=== PATIENT | female | born 1995 | race African-American/Black ===

== ENCOUNTER 2024-08-10 12:57 | Inpatient (IN) ==
[2024-08-10 14:03] LABS: Appearance Urine Clear (Clear); Bilirubin Urine Negative (Negative); Blood Urine Negative (Negative); Color Urine Yellow; Glucose Urine UA Negative (Negative); Ketones Urine Negative (Negative); Leukocyte Esterase Urine Negative (Negative); Nitrite Urine Negative (Negative); Protein Urine Negative (Negative); Specific Gravity Urine 1.006 (1.000-1.030); Urobilinogen Urine Negative (Negative); pH Urine 6.5 (4.5-7.5)
--- NOTE | 2024-08-10 14:10 | Emergency Department Note ---
Impression & Plan Depression with suicidal ideation ED Provider Note NAME: TRACE LAU AGE: 29 SEX: F : 1995 ARRIVES VIA: Ambulance INFORMANT: Patient, ED PROVIDER(S): Cordell Martinez DO CHIEF COMPLAINT: Mental health evaluation HPI: The patient is a 29-year-old female who presented to the emergency department for a mental health evaluation. The patient has been having problems with depression and suicidal ideation over the course the last several weeks. She has had this before but usually does not go this long. She states that she went to see her therapist today. Crisis was called as well. She is having suicidal ideation with plans to cut herself or to with carbon oxide poisoning. 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 She was sent to the emergency department for further evaluation as well as possible inpatient management. ROS: See above HPI for pertinent positives & negatives. A total of 10 systems reviewed and were otherwise negative. PAST MEDICAL HISTORY: See Below PAST SURGICAL HISTORY: See Below FAMILY HISTORY: See Below SOCIAL HISTORY: See Below HOME MEDICATIONS: See Below ALLERGIES: See Below VITALS: See Below PHYSICAL EXAMINATION: GENERAL: Patient is awake alert in no acute distress patient is resting comfortably and showing no signs of anxiety EYES: The conjunctivae are clear. The pupils are round and reactive. EARS, NOSE, MOUTH AND THROAT: The nose is without any evidence of any deformity. NECK: The neck is nontender and supple. RESPIRATORY: Normal respiratory effort is noted there is no evidence of wheezing rhonchi or rales CARDIOVASCULAR: Regular rate and rhythm noted there no murmurs rubs or gallops normal S1 normal S2. GASTROINTESTINAL: The abdomen is soft. Abdomen is nontender. MUSCULOSKELETAL/EXTREMITIES: There is no evidence of gross deformity full range of motion is noted in the hips and shoulders. SKIN: There is no obvious evidence of any rash. There are no petechiae, pallor or cyanosis noted. NEUROLOGIC: Patient is awake alert and oriented x3 PSYCH: The patient makes good eye contact mostly evaluation. The patient is awake and alert. The patient continues to admit to suicidal ideation. The affect is flat. MEDICAL DECISION MAKING: The patient is a 29-year-old female who presented to the emergency department for an evaluation of mental health issues. The patient was seen by her primary therapist and then sent to the emergency department for further evaluation. The patient was medically cleared in the emergency department. The patient's case was discussed with the emergency department mental health housing case manager. The patient was found to be in need of inpatient treatment. She was referred to [facility] and ultimately she was accepted on [facility] for further inpatient management. Triage Nursing notes reviewed. Prior medical records reviewed Vital Signs: reviewed and remarkable for no significant abnormalities Differential diagnosis: Mood disorder, infection, hypoglycemia, electrolyte abnormalities, cardiac sources, intracerebral event, toxicologic, trauma, neurologic, as well as other pathologies. ER treatment provided: See below Diagnostics interpreted by me: ECG: EKG was obtained in the emergency department. My interpretation is normal sinus rhythm at 67 bpm. There is no ectopy. There is no acute ST segment abnormalities noted. Inferior T wave inversions were noted. QTc was 388 ms. QRS duration was 82 ms. No previous EKG was available. Laboratory studies: As stated above and show below. Imaging studies: See below. Consultation(s): I discussed this case with the emergency department mental health housing case manager. Past Med/Surg History Problem List (Updated 08/10/24 @ 21:12 by Cordell Martinez DO) Depression with suicidal ideation (Acute) Social History Smoking Status: Never smoker Preferred Language: Zambian Feels Safe at Home: Yes Gender Identity: Female Home Meds Home Medications Medication Instructions Recorded Confirmed No Known Home Medications 08/10/24 08/10/24 Results & Data (ED) Vital Signs Vital Signs - 24 hr 08/10/24 13:00 08/10/24 15:01 08/10/24 18:28 Temperature 37.4 C Temperature Source Oral Pulse Rate 86 Pulse Rate [Left Finger] 81 95 H Pulse Rhythm [Left Finger] Regular Pulse Strength [Left Finger] Normal Respiratory Rate 18 18 18 Respiratory Effort / Characteristics Non-Labored Respiratory Depth Normal Respiratory Pattern Regular Blood Pressure 116/79 Blood Pressure [Right Arm] 116/76 121/77 Blood Pressure Mean 91 Blood Pressure Mean [Right Arm] 89 91 Blood Pressure Position [Right Arm] Sitting Pulse Oximetry 95 99 94 Oxygen Delivery Method Room Air Room Air Room Air Sepsis Recent Fever Within 48 Hours No Sepsis New/Unexplained Change in Mental Status No Sepsis Action Taken by Nursing No Action Required 08/10/24 20:00 Temperature Temperature Source Pulse Rate Pulse Rate [Left Finger] 90 Pulse Rhythm [Left Finger] Regular Pulse Strength [Left Finger] Normal Respiratory Rate 17 Respiratory Effort / Characteristics Non-Labored Respiratory Depth Normal Respiratory Pattern Regular Blood Pressure Blood Pressure [Right Arm] 116/70 Blood Pressure Mean Blood Pressure Mean [Right Arm] 85 Blood Pressure Position [Right Arm] Sitting Pulse Oximetry 98 Oxygen Delivery Method Room Air Sepsis Recent Fever Within 48 Hours Sepsis New/Unexplained Change in Mental Status Sepsis Action Taken by [facility] Medications Current Medication List: was personally reviewed by me Laboratory Data Attestation: I reviewed the patient's lab results. 08/10/24 13:20 08/10/24 13:20 Lab Results 08/10/24 08/10/24 08/10/24 Range/Units 13:00 13:20 13:27 WBC 6.61 (4.8-10.8) K/ul RBC 4.83 (4.20-5.40) M/uL Hgb 14.2 (12.0-16.0) g/dl Hct 41.0 (37.0-47.0) % MCV 84.9 (80.0-100.0) fL MCH 29.4 (25.0-34.0) pg MCHC 34.6 (32.0-36.0) g/dL RDW Std Deviation 39.1 (36.4-46.3) fL RDW Coeff of Jose 12.8 (11.5-14.5) % Plt Count 213 (130-400) K/uL MPV 10.7 (9.4-12.4) fL Immature Gran % (Auto) 0.3 % Neut % (Auto) 61.8 % Lymph % (Auto) 31.0 % [place] % (Auto) 5.7 % Eos % (Auto) 0.9 % Baso % (Auto) 0.3 % Neut # (Auto) 4.08 (1.40-6.50) K/uL Lymph # (Auto) 2.05 (1.20-3.40) K/uL [place] # (Auto) 0.38 (0.11-0.59) K/uL Eos # (Auto) 0.06 (0.00-0.50) K/uL Baso # (Auto) 0.02 (0.00-0.20) K/uL Immature Gran # (Auto) 0.02 (0.01-0.20) K/uL Sodium 135 L (136-145) mmol/L Potassium 3.6 (3.5-5.1) mmol/L Chloride 106 (98-107) mmol/L Carbon Dioxide 24 (21-32) mmol/L Anion Gap 5 (3-11) BUN 5 L (6-23) mg/dl Creatinine 0.61 (0.6-1.2) mg/dl Est Cr Clr Drug Dosing Not Reportable eGFR 125.59 BUN/Creatinine Ratio 8.2 L (10-20) Glucose 102 H (70-99(Fasting)) mg/dl Calcium 9.9 (8.6-10.3) mg/dl Total Bilirubin 0.6 (0.2-1.0) mg/dl AST 13 (13-39) U/L ALT 14 (7-52) U/L Alkaline Phosphatase 67 (34-104) U/L Total Protein 7.6 (6.0-8.3) gm/dl Albumin 4.5 (3.4-5.0) gm/dl Globulin 3.1 (2.5-4.0) gm/dl Albumin/Globulin Ratio 1.5 (0.9-2) TSH 1.804 (0.300-4.500) uIu/ml HCG, Qual Negative (Negative) Urine Color Yellow Urine Appearance Clear (Clear) Urine pH 6.5 (4.5-7.5) Ur Specific [place] 1.006 (1.000-1.030) Urine Protein Negative (Negative) Urine Glucose (UA) Negative (Negative) Urine Ketones Negative (Negative) Urine Blood Negative (Negative) Urine Nitrite Negative (Negative) Urine Bilirubin Negative (Negative) Urine Urobilinogen Negative (Negative) Ur Leukocyte Esterase Negative (Negative) Salicylates < 3.0 L (3.0-30) mg/dl Urine Opiates Screen Neg (Neg) Ur Methadone, Qual Neg (Neg) Urine Fentanyl Screen Neg (Neg) Acetaminophen < 3 L (10-30) ug/ml Urine Barbiturates Neg (Neg) Ur Phencyclidine (PCP) Neg (Neg) U Amphetamin/Meth Scrn Neg (Neg) MDMA (Ecstasy) Screen Neg (Neg) U Benzodiazepines Scrn Neg (Neg) Ur Cocaine Metabolite Neg (Neg) U Marijuana (THC) Screen Neg (Neg) Ethyl Alcohol mg/dL < 10.0 (<10.0) mg/dl SARS-CoV-2, RNA, NAAT NEGATIVE (NEGATIVE) Discharge Plan Visit Data Chief Complaint: Mental Health Evaluation Stated Complaint: Mental Health ED Provider: Cordell Martinez Discharge Problem: Depression with suicidal ideation Patient Disposition: Transfer Behavioral Health Fac Forms Stand Alone Forms: [facility], Suicide Prevention Resources Prescriptions Prescriptions: No Action No Known Home Medications Referrals Referrals: PCP,NO [Physician] -
[2024-08-10 14:18] LABS: Basophils # (auto) 0.02 K/uL (0.00-0.20); Basophils % (auto) 0.3 %; Eosinophils # (auto) 0.06 K/uL (0.00-0.50); Eosinophils % (auto) 0.9 %; Hemoglobin 14.2 g/dl (12.0-16.0); Immature Granulocytes # (auto) 0.02 K/uL (0.01-0.20); Immature Granulocytes % (auto) 0.3 %; Lymphocytes # (auto) 2.05 K/uL (1.20-3.40); Mean Corpuscular Hemoglobin 29.4 pg (25.0-34.0); Mean Corpuscular Hgb Conc 34.6 g/dL (32.0-36.0); Mean Corpuscular Volume 84.9 fL (80.0-100.0); Mean Platelet Volume 10.7 fL (9.4-12.4); Monocytes # (auto) 0.38 K/uL (0.11-0.59); Monocytes % (auto) 5.7 %; Neutrophils # (auto) 4.08 K/uL (1.40-6.50); Neutrophils % (auto) 61.8 %; Platelet Count 213 K/uL (130-400); RDW Coefficient of Variation 12.8 % (11.5-14.5); RDW Standard Deviation 39.1 fL (36.4-46.3); Red Blood Count 4.83 M/uL (4.20-5.40); White Blood Count 6.61 K/ul (4.8-10.8)
[2024-08-10 14:19] LABS: Pregnancy Test, Serum Negative (Negative)
[2024-08-10 14:26] LABS: Alanine Aminotransferase 14 U/L (7-52); Albumin Globulin Ratio 1.5 (0.9-2); Albumin Level 4.5 gm/dl (3.4-5.0); Alkaline Phosphatase 67 U/L (34-104); Anion Gap 5 (3-11); Aspartate Aminotransferase 13 U/L (13-39); BUN Creatinine Ratio 8.2 (10-20); Bilirubin,Total 0.6 mg/dl (0.2-1.0); Blood Urea Nitrogen 5 mg/dl (6-23); Calcium 9.9 mg/dl (8.6-10.3); Carbon Dioxide 24 mmol/L (21-32); Chloride 106 mmol/L (98-107); Globulin 3.1 gm/dl (2.5-4.0); Glucose 102 mg/dl (70-99(Fasting)); Potassium 3.6 mmol/L (3.5-5.1); Sodium 135 mmol/L (136-145); Total Protein 7.6 gm/dl (6.0-8.3)
[2024-08-10 14:35] LABS: Acetaminophen < 3 ug/ml (10-30); Salicylate < 3.0 mg/dl (3.0-30)
[2024-08-10 14:38] LABS: Thyroid Stimulating Hormone 1.804 uIu/ml (0.300-4.500)
[2024-08-10 14:45] LABS: Amphetamines+Metham, Urine Neg (Neg); Barbiturates, Urine Neg (Neg); Benzodiazepine, Urine Neg (Neg); Cocaine, Urine Neg (Neg); Fentanyl, Urine Neg (Neg); MDMA (Ecstacy), Urine Neg (Neg); Marijuana, Urine Neg (Neg); Methadone, Urine Neg (Neg); Opiate, Urine Neg (Neg); Phencyclidine, Urine Neg (Neg)
[2024-08-11] MEDS ORDERED: BISMUTH SUBSALICYLATE 262 MG CHEW PO PRN (00:05)
[2024-08-11] MEDS ORDERED: hydrOXYzine HCl 25 MG TAB PO PRN (00:05)
[2024-08-11] MEDS ORDERED: MAGNESIUM HYDROXIDE SUSP 30 ML UDC PO PRN (00:05)
[2024-08-11] MEDS ORDERED: SODIUM CHLORIDE 0.65% NA SOLN 45 ML (OCEAN) PRN (00:05)
[2024-08-11] MEDS ORDERED: ALUMINUM/MAGNESIUM SUSP 30 ML UDC PO PRN (00:05)
--- OUTSIDE RECORDS SUMMARY | 2024-08-11 06:36 | External Medical Summary | Continuity of Care Document ---
Author Name Unknown Organization [facility] [id number] Address [address] [place] [id number] Care Team Providers Care Clinical Dermatologist Name Role Phone Jamilah Arguello Primary Care Physici [phone] Encounter [facility] [id number] Date(s): 07/07/24 - 07/07/24 [facility] 0 [facility] [address] [place] [id number] [place] [phone] Encounter Diagnosis Synovitis of left ankle(Discharge Diagnosis) - 07/07/24 Discharge Disposition: Home or Self Care Attending Physician: MD Johansen Paul K Referring Physician: Tushar Nicolas PA-C, Heather A Allergies, Adverse Reactions, Alerts No Known Allergies Assessment and Plan Extracted from: Title:Frankie Johansen Author:Desmond Callahan Date:07/07/24 Impression: 29 year old fema le with synovitis of the left ankle. Plan: - Recommend use of Voltaren gel as needed for pain, may use up to 4x daily for 2-3 weeks straight - May continue to exercise as tolerated - May attend PT if she would like to - Follow up as needed for clinical evaluation The patient understood all my instructions and explanation; all their questions were satisfactorily addressed. Medications Fish Oil 500 mg oral capsule Start: 07/07/24 8:12:00 AM EST Start Date: 07/07/24 Status: Ordered Vitamin C Start: 07/07/24 8:12:00 AM EST Start Date: 07/07/24 Status: Ordered Vitamin D3 Start: 07/07/24 8:12:00 AM EST, b Start Date: 07/07/24 Status: Ordered Mental Status 07/07/24 Barriers to Learning one year None evide nt Mandatory Health Literacy Documentation Yes Health Literacy Communication Barriers N ever Primary Language Russian Problem List No Chronic Problems Diagnosis Diagnosis Type Effective Dates Health Status Cl inical Service Informant Synovitis of left ankle Discharge Diagnosis 07/07/24 Vital Signs Most recent to oldest [Reference Range]: 1 Height 165.1 cm (07/07/24 8:12 AM) Patient Weight 68.0 kg (07/07/24 8:12 AM) Body Mass Index 24.95 kg/m2 (07/07/24 8:12 AM) Social History Social History Type Response Smoking Status Never smoked cigaret roula Sex Female Sex Representation Female (finding) Ortho Outpt Note * Veronica Callahan: PERFORM, MODIFY, MODIFY, MODIFY, MODIFY Event Display: Ortho Outpt Note Authored Date: [id number] Primary Care Provider Tushar Nicolas PA-C, Heather A Referring Provider Tushar Nicolas PA-C, Heather A Chief Complaint L ankle pain History of Present Illness Trace [id number] yearDany presents today forchronic left ankle pain. She has been intermittent ankle pain over the last year. Symptoms started after doing calf raise exercise after a period of not exercising for a while. The pain is mostly on the anteromedial ankle and does not radiate. Plantarflexion of the ankle at push off aggravates her pain. Walking down stairs is more uncomfortable than walking up. She takes Advil as needed, roughly 1-3x weekly. She does not recall any prior ankle injuries. The patient likes to exercise daily, such as cycling and elliptical, along with strengthening of her upper body, legs, and core. She also has had ongoing left knee pain, which she believes may be affecting her ankle symptoms. Review of Systems A 14 point review of systems is available in the EMR. Physical Exam Focusing on the patient'sLEFTlower extremity (ankle): Ankle ROM: Dorsiflexion 15/ Plantarflexion 40/ Inversion 30/ Eversion 25 5/5 Strength dorsiflexion, plantarflexion, inversion, eversion Sensation intact to light touch throughout Palpable DP pulse and PT pulses - Tenderness over medial malleolus - Tenderness over deltoid ligament - Tenderness over medial gutter - Tenderness over anterior ankle joint line Mild tenderness over lateral gutter, bilaterally - Tenderness over CFL - Tenderness over navicular Anterior drawer test2 mmbilaterally -Talar tilt test No pain with forced dorsiflexion Diagnostic Results 3views of theleft ankleobtained 03/20/24 and independently interpreted by me taken at [facility] show no evidence of fractures or arthritis. Assessment/Plan Impression: 29 year old female with synovitis of the left ankle. Plan: - Recommend use of Voltaren gel as needed for pain, may use up to 4x daily for 2-3 weeks straight - May continue to exercise as tolerated - May attend PT if she would like to - Follow up as needed for clinical evaluation The patient understood all my instructions and explanation; all their questions were satisfactorilyaddressed. Attestation I, Veronica Callahan, have scribed for, and in the presence of, Frankie Johansen, on this date,07/07/2024 08:36:29. Recommendations Health Maintenance Pending(in the next year) OverDue Adult Influenza Vaccine due12/09/23and every 1year Due Adult Folic Acid Supplementation due07/07/24and every 3year Satisfied(in the past 1 year) There are no satisfied recommendations within the defined date range Electronic Signature on File Electronically Reviewed/Signed by: Veronica Callahan Author Signature Dt/Tm:07/07/2024 08:41 AM Electronically Reviewed/Signed by: Frankie Johansen MD Cosigner Signature Dt/Tm: 07/07/2024 12:56PM Division of Sports Medicine [facility] Patient Care team information Care Team Personnel Name: Tushar Nicolas PA-C, Jamilah Richardson Position: Referring DIRECT Member Role: Primary Care Provider Address: [address] [place] [id number] [place]
--- NOTE | 2024-08-11 09:04 | History & Physical ---
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 Diagnostically consistent with major depressive disorder and possible premenstrual dysphoric disorder as well as generalized anxiety disorder with panic attacks. Discussed medication treatment options in detail. Discussed risks, benefits and alternatives. Patient would like to start and consented to fluoxetine for MDD/PMDD/MICHA. Reviewed side effects including but not limited to: GI, AMTUTE, sexual side effects, and counseled on black box warning of potential for emergence of or increased SI and need to let staff know should this occur or should they feel unsafe. Also discussed importance of seeking emergency care following discharge if this side effect occurs in the future. Overall I spent a total of 75 minutes for this admission including review of chart records, review of labwork, direct evaluation of the patient, counseling the patient, ordering medication, risk assessment, discussion with the psychiatric liason RN and documentation in the electronic health record. (1) Depression with suicidal ideation: (2) MDD (major depressive disorder), recurrent episode, severe: (3) PMDD (premenstrual dysphoric disorder): (4) Generalized anxiety disorder with panic attacks: (5) Insomnia: Plan 08/11/2024: The patient was admitted to the [facility] ([facility] mental health unit) on q15 min checks (behavioral with suicide precautions) for safety. The patient will participate in group, recreational, and milieu therapies and will be offered additional individual and family sessions as clinically appropriate. -start fluoxetine 10mg daily -explore opportunities for increased outpatient support through increased frequency of therapy vs IOP Inventory Assets Strengths: supportive relationships, willing to get treatment Needs: safety and stabilization, medication adjustment, additional coping skills, increased outpatient services Suicide Risk Level Suicide Risk Level: High-Moderate (q15 min suicide checks) (depression with SI with plans but feels safe in the hospital and feels able to ask for support if needed) Risk Factors Assessment Male: No : No Do You Have Access To A Gun?: No Health Problems: No Mental Health Diagnoses: Yes Substance Use Disorders: No Previous Attempt: Yes (rehearsal behaviors leading to this admission) Family History of Suicide: No Previous Psychiatric Hospitalization: No Hopelessness: Yes Protective Factors Assessment Employed: Yes Stable Relationships: Yes Supportive Family: Yes Good Rapport with Provider: Yes Psychiatric History Identifying Data TRACE LAU is a 29-year-old woman and 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 Chief Complaint "I kind of just dipped and everything started to spiral". History of Present Illness She presents for psychiatric admission for worsening depression and SI with plans of using a knife, overdosing on pain medications, using carbon monoxide poisoning or crashing her car and rehearsal behavior of almost cutting her wrist in the context of multiple psychosocial stressors including research challenges, upcoming comprehensive exam, and relationship strain of comparison of peers, and concerns about her status as an International student given the current political enviornment. Her current depressive episode began approximately a month ago but worsened two weeks ago when she lost her keys, which gave her access to her lab, home, and gym. This incident exacerbated her stress, leading to a period of staying in bed and not answering anyone for the last two weeks. She has not been going to the lab during this time.She recalls her mood spiraling after losing her keys. She was able to talk herself down from this stress but "I thought I managed it at that time" but this disrupted her routine as then she couldn't get into her gym and then started to increasingly isolate. For the last two weeks she's been lying in bed, not attending to her research and not interacting with peers. She had significant anxiety thinking about all the tasks waiting for her at the lab and "I would ruminate on that" which lead to further avoidance. She has noticed a connection between her mood and hormonal fluctuations related to her menstrual cycle, experiencing irritability and mood swings before her period, followed by depression. She had been trying behavioral activation strategies and coping strategies but then symptoms spiraled. She endorses depressive symptoms including tearfulness, anhedonia, decreased motivation, self-guilt, helplessness, hopelessness, decreased energy/fatigue, decreased appetite (eating meal per day), and decreased sleep with disruptive sleep (had been tracking using a CBT-I miguel) but started falling asleep later getting <6 hours. SI has been occurring more frequently with each episode of depression and has intensified to the point of thinking about plans about two weeks ago and has continued to worsen. She also endorses symptoms of anxiety including generalized worries, easily overwhelmed. Possible panic attack a few days ago for the first time with racing heart, trembling and cried. She is not currently prescribed any psychiatric medications. Psychiatric ROS notable for no current nor history of symptoms of ericka, psychosis, nor OCD. History of trauma with nightmares and flashbacks but using affirmations and distraction and tends to be able to then cope with these symptoms effectively. History of restrictive eating for two months as a teenager. History of hair pulling, worsens with anxiety. Past Psychiatric History Current Psychiatric Diagnosis: unspecified depressive disorder Outpatient Services: therapist Zaynab Weinstein with [facility], weekly Previous Psych Admissions: none Do You Have Access To A Gun?: No History of Previous Suicide Attempt: Yes (speaks to cutting herself leading to this admission) Past Medication Trials: none Past Head Trauma/Neuro History History of Concussion/Seizure: No Allergies Allergy/AdvReac Type Severity Reaction Status Date / Time No Known Allergies Allergy Unverified 08/11/24 00:07 Home Medications Medication Instructions Recorded Confirmed Type No Known Home Medications 08/10/24 08/10/24 History Family History Family History of: Other-List under Comment (brother with ADHD and depression) Alcohol History Hx of Alcohol Use Over the Past 12 Months: No AUDIT Total Score: 0 Smoking Use Have You Smoked or Used Tobacco Products in the Last 30 Days: No Smoking Status: Never smoker Substance History Hx of Prescription Med Misuse Over the Past 12 Months: No Hx of Over the Counter Med Misuse Over the Past 12 Months: No Hx of Inhalent Misuse Over the Past 12 Months: No Hx of Organic Substance Use Over the Past 12 Months: No Hx of Illegal Substances/Street Drug Use Over Past 12 Months: No Problems as a Result of Past Substance Use: None Identified Personal History Living Arrangements: Apartment Childhood: From [place] Highest Grade Completed: Graduate School 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 ) Marital Status: Single Number Of Children: none Beliefs That Will Affect Care: None Current Legal Problems: No Hx Legal Problems: No Hx Traumatic Life Events: Yes Patient History Family History (Updated 08/11/24 @ 11:58 by Dana Gao MD) Mother Hypertension Brother Hypertension Social History Smoking Status: Never smoker 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 Supervisor Required: No Beliefs That Will Affect Care: None Feels Safe at Home: Yes Gender Identity: Female Assistive Devices: None Review of Systems Review of Systems: All systems reviewed & are unremarkable except as noted in HPI & below Physical Exam Psychiatric: Orientation: alert and oriented x 3 Apperance: appropriately dressed and appropriately groomed Eye Contact: good eye contact Motor Behavior: no abnormal motor movements Speech: normal rate/rhythm/volume of speech Affect: + depressed affect Mood: + depressed mood and + anxious mood Thought Process: goal directed thought process Thought Content: reality based without delusions Suicidal Thoughts: denies suicidal plan (none for hospital, multiple for outside the hospital) and denies suicidal intent; + reports suicidal thoughts (intermittent ) Homicidal Thoughts: denies homicidal thoughts Hallucinations: no auditory hallucinations and no visual hallucinations Cognition: recent memory grossly intact, remote memory grossly intact, attention grossly intact and language grossly intact Estimated Intelligence: consistent with education level Insight: + fair insight Judgment: + fair judgement Vital Signs (Past 24 Hours): Last Vital Signs Temp 36.8 C 08/11/24 05:47 Pulse 88 08/11/24 05:48 Resp 18 08/11/24 05:47 BP 118/75 08/11/24 05:48 Pulse Ox 100 08/11/24 05:47 O2 Del Method Room Air 08/11/24 05:47 Exam Statement: A physical exam was performed in the ED by Dr. Martinez for the purposes of medical clearance. I accept that physical as correct and adequate for the purposes of the inpatient physical exam. Results & Data ([facility]) Laboratory Results Laboratory Results - last 24 hr 08/10/24 08/10/24 08/10/24 13:00 13:20 13:27 WBC 6.61 RBC 4.83 Hgb 14.2 Hct 41.0 MCV 84.9 MCH 29.4 MCHC 34.6 RDW Std Deviation 39.1 RDW Coeff of Jose 12.8 Plt Count 213 MPV 10.7 Immature Gran % (Auto) 0.3 Neut % (Auto) 61.8 Lymph % (Auto) 31.0 Mcmullen % (Auto) 5.7 Eos % (Auto) 0.9 Baso % (Auto) 0.3 Neut # (Auto) 4.08 Lymph # (Auto) 2.05 Mcmullen # (Auto) 0.38 Eos # (Auto) 0.06 Baso # (Auto) 0.02 Immature Gran # (Auto) 0.02 Sodium 135 L Potassium 3.6 Chloride 106 Carbon Dioxide 24 Anion Gap 5 BUN 5 L Creatinine 0.61 Est Cr Clr Drug Dosing Not Reportable eGFR 125.59 BUN/Creatinine Ratio 8.2 L Glucose 102 H Calcium 9.9 Total Bilirubin 0.6 AST 13 ALT 14 Alkaline Phosphatase 67 Total Protein 7.6 Albumin 4.5 Globulin 3.1 Albumin/Globulin Ratio 1.5 TSH 1.804 HCG, Qual Negative Urine Color Yellow Urine Appearance Clear Urine pH 6.5 Ur Specific [place] 1.006 Urine Protein Negative Urine Glucose (UA) Negative Urine Ketones Negative Urine Blood Negative Urine Nitrite Negative Urine Bilirubin Negative Urine Urobilinogen Negative Ur Leukocyte Esterase Negative Salicylates < 3.0 L Urine Opiates Screen Neg Ur Methadone, Qual Neg Urine Fentanyl Screen Neg Acetaminophen < 3 L Urine Barbiturates Neg Ur Phencyclidine (PCP) Neg U Amphetamin/Meth Scrn Neg MDMA (Ecstasy) Screen Neg U Benzodiazepines Scrn Neg Ur Cocaine Metabolite Neg U Marijuana (THC) Screen Neg Ethyl Alcohol mg/dL < 10.0 SARS-CoV-2, RNA, NAAT NEGATIVE Current Inpatient Medications Current Inpatient Medications: Current Inpatient Medications Acetaminophen (Acetaminophen 325 Mg Tab) 650 mg PO Q4H PRN PRN Reason: Headache or Minor Fever Stop: 09/10/24 00:04 Al Hydrox/Mg Hydrox/Simethicone (Aluminum/Magnesium Susp 30 Ml Udc) 30 ml PO Q4H PRN PRN Reason: GI Upset Stop: 09/10/24 00:04 Bismuth Subsalicylate (Bismuth Subsalicylate 262 Mg Chew) 2 tab PO Q30M PRN PRN Reason: Loose Stool/Diarrhea Stop: 09/10/24 00:04 Hydroxyzine HCl (Hydroxyzine Hcl 25 Mg Tab) 50 mg PO HSZ PRN PRN Reason: Insomnia Stop: 09/10/24 00:04 Hydroxyzine HCl (Hydroxyzine Hcl 25 Mg Tab) 25 mg PO Q4H PRN PRN Reason: Anxiety Stop: 09/10/24 00:04 Magnesium Hydroxide (Magnesium Hydroxide Susp 30 Ml Udc) 30 ml PO DAILY PRN PRN Reason: Constipation Stop: 09/10/24 00:04 Sodium Chloride (Sodium Chloride 0.65% Na Soln 45 Ml ([place])) 1 - 2 sprays NA PRN PRN PRN Reason: Nasal Dryness/Congestion Stop: 09/10/24 00:04
[2024-08-11] MEDS: FLUoxetine HCL 10 MG CAP PO SCH (12:57)
[2024-08-11] MEDS: ACETAMINOPHEN 325 MG TAB PO PRN (20:17)
[2024-08-12] MEDS: hydrOXYzine HCl 25 MG TAB PO PRN (00:08)
--- NOTE | 2024-08-12 09:19 | Psychiatric Progress Note ---
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 Diagnostically consistent with major depressive disorder and possible premenstrual dysphoric disorder as well as generalized anxiety disorder with panic attacks. A: Ongoing depression and disrupted sleep but some lessening of SI. Headache today may be due to SSRI so will continue at 10mg for now. She prefers to continue to utilize Vistaril prn for insomnia vs scheduled additional medication for sleep. Overall, I spent a total of 35 minutes on this case including meeting with the patient, reviewing the chart, nursing report, multidisciplinary team meeting, orders, and documentation. (1) Depression with suicidal ideation: (2) MDD (major depressive disorder), recurrent episode, severe: (3) PMDD (premenstrual dysphoric disorder): (4) Generalized anxiety disorder with panic attacks: (5) Insomnia: Plan 08/12/2024: Continue current medications and tx plan 08/11/2024: The patient was admitted to the [facility] ([facility] inpatient mental health unit) on q15 min checks (behavioral with suicide precautions) for safety. The patient will participate in group, recreational, and milieu therapies and will be offered additional individual and family sessions as clinically appropriate. 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, still with SI but no intent, mood improving, feels safe in the hospital and feels able to ask for support if needed) Risk Factors Assessment Male: No : No Do You Have Access To A Gun?: No Health Problems: No Mental Health Diagnoses: Yes Substance Use Disorders: No Previous Attempt: Yes (rehearsal behaviors leading to this admission) Family History of Suicide: No Previous Psychiatric Hospitalization: No Hopelessness: Yes Protective Factors Assessment Employed: Yes Stable Relationships: Yes Supportive Family: Yes Good Rapport with Provider: Yes Interval History Identifying Information 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 Chief Complaint "much better". Review of Systems Sleep Information Total Hours of Sleep: 5.5 Meal Information Percent Meal Consumed - Breakfast: 100 Percent Meal Consumed - Lunch: 75 Percent Meal Consumed - Dinner: 90 Subjective Subjective Patient was seen & assessed and interval progress reviewed with treatment team. Attending groups. Ate well yesterday. Rated mood as feeling "relief" last evening. Had difficulty sleeping awake at 12:30am and used prn Vistaril and 4:45am. Her mother and sister visited last evening. Today reports improving mood which she credits to getting back into more physical activity and morning routine and being around others. Slight headache today, no other medication side effects. SI "still there but less intense". had a good visit with family, she was worried about their reaction but they were very supportive and nonjudgmental. Vistaril helped some with sleep. This morning feels "a little groggy but rested". Physical Exam Psychiatric Orientation: alert and oriented x 3 Apperance: appropriately dressed and appropriately groomed Eye Contact: good eye contact Motor Behavior: no abnormal motor movements Speech: normal rate/rhythm/volume of speech Affect: + depressed affect Mood: + depressed mood and + anxious mood Thought Process: goal directed thought process Thought Content: reality based without delusions Suicidal Thoughts: denies suicidal plan (none for hospital, multiple for outside the hospital) and denies suicidal intent; + reports suicidal thoughts Homicidal Thoughts: denies homicidal thoughts Hallucinations: no auditory hallucinations and no visual hallucinations Cognition: recent memory grossly intact, remote memory grossly intact, attention grossly intact and language grossly intact Estimated Intelligence: consistent with education level Insight: + fair insight Judgment: + fair judgement Vital Signs (Past 24 Hours) Last Vital Signs Temp 36.6 C 08/12/24 06:00 Pulse 68 08/12/24 06:00 Resp 16 08/12/24 06:00 BP 115/83 08/12/24 06:40 Pulse Ox 100 08/12/24 06:00 O2 Del Method Room Air 08/12/24 06:00 Results & Data ([facility]) Current Inpatient Medications Current Inpatient Medications: Current Inpatient Medications Acetaminophen (Acetaminophen 325 Mg Tab) 650 mg PO Q4H PRN PRN Reason: Headache or Minor Fever Stop: 09/10/24 00:04 Last Admin: 08/11/24 20:17 Dose: 650 mg Al Hydrox/Mg Hydrox/Simethicone (Aluminum/Magnesium Susp 30 Ml Udc) 30 ml PO Q4H PRN PRN Reason: GI Upset Stop: 09/10/24 00:04 Bismuth Subsalicylate (Bismuth Subsalicylate 262 Mg Chew) 2 tab PO Q30M PRN PRN Reason: Loose Stool/Diarrhea Stop: 09/10/24 00:04 Fluoxetine HCl (Fluoxetine Hcl 10 Mg Cap) 10 mg PO QAM PETER Stop: 09/10/24 12:29 Last Admin: 08/12/24 09:08 Dose: 10 mg Hydroxyzine HCl (Hydroxyzine Hcl 25 Mg Tab) 50 mg PO HSZ PRN PRN Reason: Insomnia Stop: 09/10/24 00:04 Last Admin: 08/12/24 00:08 Dose: 50 mg Hydroxyzine HCl (Hydroxyzine Hcl 25 Mg Tab) 25 mg PO Q4H PRN PRN Reason: Anxiety Stop: 09/10/24 00:04 Magnesium Hydroxide (Magnesium Hydroxide Susp 30 Ml Udc) 30 ml PO DAILY PRN PRN Reason: Constipation Stop: 09/10/24 00:04 Sodium Chloride (Sodium Chloride 0.65% Na Soln 45 Ml ([place])) 1 - 2 sprays NA PRN PRN PRN Reason: Nasal Dryness/Congestion Stop: 09/10/24 00:04 Mental Health & Subst Abuse Tx Therapist Name of Therapist: Zaynab Weinstein, [facility]
--- NOTE | 2024-08-12 20:27 | Electrocardiogram Report ---
Test Reason : Blood Pressure : */* mmHG Vent. Rate : 67 BPM Atrial Rate : 67 BPM P-R Int : 174 ms QRS Dur : 82 ms QT Int : 368 ms P-R-T Axes : 55 48 -12 degrees QTcB Int : 388 ms Normal sinus rhythm with sinus arrhythmia Nonspecific T wave abnormality Abnormal ECG No previous ECGs available Confirmed by Bennett Roy ([id number]) on 08/12/2024 8:26:48 PM Referred By: REFERRED SELF Confirmed By: Bennett Roy
--- NOTE | 2024-08-13 09:02 | Psychiatric Progress Note ---
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 Diagnostically consistent with major depressive disorder and possible premenstrual dysphoric disorder as well as generalized anxiety disorder with panic attacks. A: Mood slowly improving, still with some SI but lessening in intensity and frequency. Tolerating fluoxetine, still with slight headache but wants to increase fluoxetine tomorrow. Imitrex prn ordered as she reports family hx of migraines and hx of headaches none responsive to NSAIDs. Overall, I spent a total of 35 minutes on this case including meeting with the patient, reviewing the chart, nursing report, multidisciplinary team meeting, orders, and documentation. (1) Depression with suicidal ideation: (2) MDD (major depressive disorder), recurrent episode, severe: (3) PMDD (premenstrual dysphoric disorder): (4) Generalized anxiety disorder with panic attacks: (5) Insomnia: Plan 08/13/2024: -Increase fluoxetine to 20mg daily tomorrow 08/12/2024: Continue current medications and tx plan 08/11/2024: The patient was admitted to the [facility] ([facility] inpatient mental health unit) on q15 min checks (behavioral with suicide precautions) for safety. The pa tient will participate in group, recreational, and milieu therapies and will be offered additional individual and family sessions as clinically appropriate. 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, mood improving, SI lessening, feels safe in the hospital and feels able to ask for support if needed) Risk Factors Assessment Male: No : No Do You Have Access To A Gun?: No Health Problems: No Mental Health Diagnoses: Yes Substance Use Disorders: No Previous Attempt: Yes (rehearsal behaviors leading to this admission) Family History of Suicide: No Previous Psychiatric Hospitalization: No Hopelessness: Yes Protective Factors Assessment Employed: Yes Stable Relationships: Yes Supportive Family: Yes Good Rapport with Provider: Yes Interval History Identifying Information 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 Chief Complaint "Slept really well". Review of Systems Sleep Information Total Hours of Sleep: 7 Meal Information Percent Meal Consumed - Breakfast: 100 Percent Meal Consumed - Lunch: 75 Percent Meal Consumed - Dinner: 100 Subjective Subjective Patient was seen & assessed and interval progress reviewed with nursing and social work. Attending groups, last evening reported mood as "content but drowsy". SI lessening, only one or two thoughts this morning she reports as "barely there". Reports improving mood and slept well and woke feeling well rested. Having structure is helping her mood improve and SI lessen. Still with headache but less today, she'd like to increase fluoxetine tomorrow. Physical Exam Psychiatric Orientation: alert and oriented x 3 Apperance: appropriately dressed and appropriately groomed Eye Contact: good eye contact Motor Behavior: no abnormal motor movements Speech: normal rate/rhythm/volume of speech Affect: + constricted affect Mood: + depressed mood and + anxious mood Thought Process: goal directed thought process Thought Content: reality based without delusions Suicidal Thoughts: denies suicidal plan and denies suicidal intent; + reports suicidal thoughts (intermittent, lessening today) Homicidal Thoughts: denies homicidal thoughts Hallucinations: no auditory hallucinations and no visual hallucinations Cognition: recent memory grossly intact, remote memory grossly intact, attention grossly intact and language grossly intact Estimated Intelligence: consistent with education level Insight: + fair insight Judgment: + fair judgement Vital Signs (Past 24 Hours) Last Vital Signs Temp 37.1 C 08/13/24 06:35 Pulse 79 08/13/24 06:35 Resp 17 08/13/24 06:35 BP 113/83 08/13/24 06:36 Pulse Ox 95 08/13/24 06:35 O2 Del Method Room Air 08/13/24 06:35 Results & Data ([facility]) Current Inpatient Medications Current Inpatient Medications: Current Inpatient Medications Acetaminophen (Acetaminophen 325 Mg Tab) 650 mg PO Q4H PRN PRN Reason: Headache or Minor Fever Stop: 09/10/24 00:04 Last Admin: 08/12/24 16:49 Dose: 650 mg Al Hydrox/Mg Hydrox/Simethicone (Aluminum/Magnesium Susp 30 Ml Udc) 30 ml PO Q4H PRN PRN Reason: GI Upset Stop: 09/10/24 00:04 Bismuth Subsalicylate (Bismuth Subsalicylate 262 Mg Chew) 2 tab PO Q30M PRN PRN Reason: Loose Stool/Diarrhea Stop: 09/10/24 00:04 Fluoxetine HCl (Fluoxetine Hcl 10 Mg Cap) 10 mg PO QAM PETER Stop: 09/10/24 12:29 Last Admin: 08/13/24 08:49 Dose: 10 mg Hydroxyzine HCl (Hydroxyzine Hcl 25 Mg Tab) 50 mg PO HSZ PRN PRN Reason: Insomnia Stop: 09/10/24 00:04 Last Admin: 08/12/24 00:08 Dose: 50 mg Hydroxyzine HCl (Hydroxyzine Hcl 25 Mg Tab) 25 mg PO Q4H PRN PRN Reason: Anxiety Stop: 09/10/24 00:04 Magnesium Hydroxide (Magnesium Hydroxide Susp 30 Ml Udc) 30 ml PO DAILY PRN PRN Reason: Constipation Stop: 09/10/24 00:04 Sodium Chloride (Sodium Chloride 0.65% Na Soln 45 Ml ([place])) 1 - 2 sprays NA PRN PRN PRN Reason: Nasal Dryness/Congestion Stop: 09/10/24 00:04 Mental Health & Subst Abuse Tx Therapist Name of Therapist: Westley Granger Psychology Therapist's Date of Therapist Appointment: 08/19 Time of Therapist Appointment: 11am Therapy Appointment Comment: Telehealth appt
[2024-08-13] MEDS ORDERED: SUMAtriptan succinate 25 MG TAB PO PRN (10:16)
--- NOTE | 2024-08-14 09:09 | Psychiatric Progress Note ---
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 Diagnostically consistent with major depressive disorder and possible premenstrual dysphoric disorder as well as generalized anxiety disorder with panic attacks. A: Mood slowly improving, slight increase in anxiety in thinking about post discharge stressors and support meeting. Tolerating higher dose of fluoxetine so far today. Overall, I spent a total of 35 minutes on this case including meeting with the patient, reviewing the chart, nursing report, multidisciplinary team meeting, orders, and documentation. (1) Depression with suicidal ideation: (2) MDD (major depressive disorder), recurrent episode, severe: (3) PMDD (premenstrual dysphoric disorder): (4) Generalized anxiety disorder with panic attacks: (5) Insomnia: Plan 08/14/2024: -Continue current medications and tx plan 08/13/2024: -Increase fluoxetine to 20mg daily tomorrow 08/12/2024: Continue current medications and tx plan 08/11/2024: The patient was admitted to the [facility] ([facility] inpatient mental health unit) on q15 min checks (behavioral with suicide precautions) for safety. The patient will participate in group, recreational, and milieu therapies and will be offered additional individual and family sessions as clinically appropriate. 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, mood improving, SI lessening, feels safe in the hospital and feels able to ask for support if needed) Risk Factors Assessment Male: No : No Do You Have Access To A Gun?: No Health Problems: No Mental Health Diagnoses: Yes Substance Use Disorders: No Previous Attempt: Yes (rehearsal behaviors leading to this admission) Family History of Suicide: No Previous Psychiatric Hospitalization: No Hopelessness: Yes Protective Factors Assessment Employed: Yes Stable Relationships: Yes Supportive Family: Yes Good Rapport with Provider: Yes Interval History Identifying Information 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 Chief Complaint "a little nervous". Review of Systems Sleep Information Total Hours of Sleep: 5.25 Sleep Comments: Sat in day room and read a book for about 45 min. Meal Information Percent Meal Consumed - Breakfast: 75 Percent Meal Consumed - Lunch: 95 Percent Meal Consumed - Dinner: 100 Subjective Subjective Patient was seen & assessed and interval progress reviewed with treatment team. Attending groups, interactive with peers. Reported mood as "calm". Today reports mood as "a little nervous about the meeting" in regards to support meeting this afternoon. States she feels anxiety is coming from trying to consider best course of action after discharge in terms of returning home for a little bit of time with family versus staying in town with family support. She is leaning towards wanting to stay in town with family support for a few days. Today reports "fleeting" SI. She feels her appetite is improving and tolerating higher dose of Prozac without any side effects. No headache today. Slept well overnight. Physical Exam Psychiatric Orientation: alert and oriented x 3 Apperance: appropriately dressed and appropriately groomed Eye Contact: good eye contact Motor Behavior: no abnormal motor movements Speech: normal rate/rhythm/volume of speech Affect: + constricted affect Mood: + depressed mood and + anxious mood Thought Process: goal directed thought process Thought Content: reality based without delusions Suicidal Thoughts: denies suicidal plan and denies suicidal intent; + reports suicidal thoughts (intermittent, lessening today) Homicidal Thoughts: denies homicidal thoughts Hallucinations: no auditory hallucinations and no visual hallucinations Cognition: recent memory grossly intact, remote memory grossly intact, attention grossly intact and language grossly intact Estimated Intelligence: consistent with education level Insight: + fair insight Judgment: + fair judgement Vital Signs (Past 24 Hours) Last Vital Signs Temp 37.1 C 08/13/24 06:35 Pulse 79 08/13/24 06:35 Resp 17 08/13/24 06:35 BP 113/83 08/13/24 06:36 Pulse Ox 95 08/13/24 06:35 O2 Del Method Room Air 08/13/24 06:35 Results & Data ([facility]) Current Inpatient Medications Current Inpatient Medications: Current Inpatient Medications Acetaminophen (Acetaminophen 325 Mg Tab) 650 mg PO Q4H PRN PRN Reason: Headache or Minor Fever Stop: 09/10/24 00:04 Last Admin: 08/12/24 16:49 Dose: 650 mg Al Hydrox/Mg Hydrox/Simethicone (Aluminum/Magnesium Susp 30 Ml Udc) 30 ml PO Q4H PRN PRN Reason: GI Upset Stop: 09/10/24 00:04 Bismuth Subsalicylate (Bismuth Subsalicylate 262 Mg Chew) 2 tab PO Q30M PRN PRN Reason: Loose Stool/Diarrhea Stop: 09/10/24 00:04 Fluoxetine HCl (Fluoxetine Hcl 20 Mg Cap) 20 mg PO QAM PETER Stop: 09/13/24 08:59 Hydroxyzine HCl (Hydroxyzine Hcl 25 Mg Tab) 50 mg PO HSZ PRN PRN Reason: Insomnia Stop: 09/10/24 00:04 Last Admin: 08/14/24 02:12 Dose: 50 mg Hydroxyzine HCl (Hydroxyzine Hcl 25 Mg Tab) 25 mg PO Q4H PRN PRN Reason: Anxiety Stop: 09/10/24 00:04 Magnesium Hydroxide (Magnesium Hydroxide Susp 30 Ml Udc) 30 ml PO DAILY PRN PRN Reason: Constipation Stop: 09/10/24 00:04 Sodium Chloride (Sodium Chloride 0.65% Na Soln 45 Ml ([place])) 1 - 2 sprays NA PRN PRN PRN Reason: Nasal Dryness/Congestion Stop: 09/10/24 00:04 Sumatriptan Succinate (Sumatriptan Succinate 25 Mg Tab) 25 mg PO DAILY PRN PRN Reason: Migraine Headache Stop: 09/12/24 10:15 Mental Health & Subst Abuse Tx Psychiatrist Name of Psychiatrist: Feli Ceron Psychiatrist's Date Of Appointment With Psychiatric Provider: 08/26/24 Time of Appointment with Psychiatrist: 2:30PM Psychiatric Appointment Comment: 1.5hr intake appt-they will get shorter. $10 copay Therapist Name of Therapist: Westley Granger Psychology Therapist's Date of Therapist Appointment: 08/19 Time of Therapist Appointment: 11am Therapy Appointment Comment: Telehealth appt Post Discharge Appointments Primary Care Physician Name Of Family Doctor/PCP: Raman Contact Information Discharge Discharge Address: [address] [place] [address] [address], [place] [address]
[2024-08-14] MEDS: FLUoxetine HCL 20 MG CAP PO SCH (09:43)
--- NOTE | 2024-08-15 15:47 | Psychiatric Progress Note ---
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 Diagnostically consistent with major depressive disorder and possible premenstrual dysphoric disorder as well as generalized anxiety disorder with panic attacks. A: Patient presents improvements in depression symptoms with resolution of suicidal ideation, improved self-esteem, more reactive affect, engaging in self- care. Continues to have sleep maintenance dysfunction and racing thoughts. Patient would likely benefit from cognitive behavioral therapy for anxiety and sleep control. Educated about sleep hygiene and automatic negative thoughts. Overall, I spent a total of 35 minutes on this case including meeting with the patient, reviewing the chart, nursing report, multidisciplinary team meeting, orders, and documentation. (1) Depression with suicidal ideation: (2) MDD (major depressive disorder), recurrent episode, severe: (3) PMDD (premenstrual dysphoric disorder): (4) Generalized anxiety disorder with panic attacks: (5) Insomnia: Plan 08/15/2024: Continue medications and treatment plan 08/14/2024: -Continue current medications and tx plan 08/13/2024: -Increase fluoxetine to 20mg daily tomorrow 08/12/2024: Continue current medications and tx plan 08/11/2024: The patient was admitted to the [facility] ([facility] mental health unit) on q15 min checks (behavioral with suicide precautions) for safety. The patient will participate in group, recreational, and milieu therapies and will be offered additional individual and family sessions as clinically appropriate. 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, mood improving, SI lessening, feels safe in the hospital and feels able to ask for support if needed) Risk Factors Assessment Male: No : No Do You Have Access To A Gun?: No Health Problems: No Mental Health Diagnoses: Yes Substance Use Disorders: No Previous Attempt: Yes (rehearsal behaviors leading to this admission) Family History of Suicide: No Previous Psychiatric Hospitalization: No Hopelessness: Yes Protective Factors Assessment Employed: Yes Stable Relationships: Yes Supportive Family: Yes Good Rapport with Provider: Yes Interval History Identifying Information 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 Chief Complaint Depression Review of Systems Sleep Information Total Hours of Sleep: 6.5 Sleep Comments: Sat in day room and read a book for about 45 min. Meal Information Percent Meal Consumed - Breakfast: 100 Percent Meal Consumed - Lunch: 90 Percent Meal Consumed - Dinner: 100 Subjective Subjective Patient was seen & assessed and interval progress reviewed with treatment team nursing and social work Patient reports initial thoughts of despair and suicidal ideation. She had contacted her therapist who recommended inpatient treatment. Reports since late April she has had trouble getting out of bed and that stressors have built up. Tried to maintain a routine however it was ineffective to manage symptoms. Since being in the hospital she reports feeling better and less isolated and has been connecting with her peers and family. 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 Continues to have trouble falling and staying asleep. Reports repeated episodes of depression which last 2 weeks and occur 3 times yearly. Some association with menstrual cycle as it tends to worsen 1 week before until 1 week after. She denies current suicidal ideation. Physical Exam Mental Examination Appearance: Well Groomed Eye Contact: Direct Eye Contact Motor Behavior: Unremarkable Speech: Soft Mood: Euthymic and Calm Affect: Appropriate and Congruent Thought Process: Intact Hallucinations: None Insight: Fair Judgement: Fair Vital Signs (Past 24 Hours) Last Vital Signs Temp 36.9 C 08/15/24 06:41 Pulse 87 08/15/24 06:41 Resp 16 08/15/24 06:41 BP 104/72 08/15/24 06:41 Pulse Ox 95 08/13/24 06:35 O2 Del Method Room Air 08/13/24 06:35 Results & Data ([facility]) Current Inpatient Medications Current Inpatient Medications: Current Inpatient Medications Acetaminophen (Acetaminophen 325 Mg Tab) 650 mg PO Q4H PRN PRN Reason: Headache or Minor Fever Stop: 09/10/24 00:04 Last Admin: 08/12/24 16:49 Dose: 650 mg Al Hydrox/Mg Hydrox/Simethicone (Aluminum/Magnesium Susp 30 Ml Udc) 30 ml PO Q4H PRN PRN Reason: GI Upset Stop: 09/10/24 00:04 Bismuth Subsalicylate (Bismuth Subsalicylate 262 Mg Chew) 2 tab PO Q30M PRN PRN Reason: Loose Stool/Diarrhea Stop: 09/10/24 00:04 Fluoxetine HCl (Fluoxetine Hcl 20 Mg Cap) 20 mg PO QAM PETER Stop: 09/13/24 08:59 Last Admin: 08/15/24 08:30 Dose: 20 mg Hydroxyzine HCl (Hydroxyzine Hcl 25 Mg Tab) 50 mg PO HSZ PRN PRN Reason: Insomnia Stop: 09/10/24 00:04 Last Admin: 08/14/24 02:12 Dose: 50 mg Hydroxyzine HCl (Hydroxyzine Hcl 25 Mg Tab) 25 mg PO Q4H PRN PRN Reason: Anxiety Stop: 09/10/24 00:04 Magnesium Hydroxide (Magnesium Hydroxide Susp 30 Ml Udc) 30 ml PO DAILY PRN PRN Reason: Constipation Stop: 09/10/24 00:04 Sodium Chloride (Sodium Chloride 0.65% Na Soln 45 Ml ([place])) 1 - 2 sprays NA PRN PRN PRN Reason: Nasal Dryness/Congestion Stop: 09/10/24 00:04 Sumatriptan Succinate (Sumatriptan Succinate 25 Mg Tab) 25 mg PO DAILY PRN PRN Reason: Migraine Headache Stop: 09/12/24 10:15 Mental Health & Subst Abuse Tx Psychiatrist Name of Psychiatrist: Feli Ceron Psychiatrist's Date Of Appointment With Psychiatric Provider: 08/26/24 Time of Appointment with Psychiatrist: 2:30PM Psychiatric Appointment Comment: 1.5hr intake appt-they will get shorter. $10 copay Therapist Name of Therapist: Westley Granger Psychology Therapist's Date of Therapist Appointment: 08/19 Time of Therapist Appointment: 11am Therapy Appointment Comment: Telehealth appt Post Discharge Appointments Primary Care Physician Name Of Family Doctor/PCP: LISA Other #1: Name of Aftercare Appointment: Student Care and Advocacy Date of Aftercare Appointment: 08/21/24 Time of Aftercare Appointment: 2pm Aftercare Appointment Comment: Link will be sent to your [employer] email Contact Information Discharge Discharge Address: [address] [place] [address] [address], [place] [address]
--- NOTE | 2024-08-16 15:20 | Psychiatric Progress Note ---
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 Diagnostically consistent with major depressive disorder and possible premenstrual dysphoric disorder as well as generalized anxiety disorder with panic attacks. A: Patient is presenting a more positive outlook and less anxiety. Continues to have sleep maintenance difficulties. Today we reviewed sleep hygiene techniques. She presents a reasonable plan post discharge and is able to contract for safety. Introduced CBT model. Overall, I spent a total of 35 minutes on this case including meeting with the patient, reviewing the chart, nursing report, multidisciplinary team meeting, orders, and documentation. (1) MDD (major depressive disorder), recurrent episode, severe: (2) PMDD (premenstrual dysphoric disorder): (3) Generalized anxiety disorder with panic attacks: (4) Insomnia: Plan 08/16/2024: Continue medications and treatment plan 08/15/2024: Continue medications and treatment plan 08/14/2024: -Continue current medications and tx plan 08/13/2024: -Increase fluoxetine to 20mg daily tomorrow 08/12/2024: Continue current medications and tx plan 08/11/2024: The patient was admitted to the [facility] ([facility]) on q15 min checks (behavioral with suicide precautions) for safety. The patient will participate in group, recreational, and milieu therapies and will be offered additional individual and family sessions as clinically appropriate. 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 SPECIALIST, still with SI but no intent, mood improving, SI lessening, feels safe in the hospital and feels able to ask for support if needed) Risk Factors Assessment Male: No : No Do You Have Access To A Gun?: No Health Problems: No Mental Health Diagnoses: Yes Substance Use Disorders: No Previous Attempt: Yes (rehearsal behaviors leading to this admission) Family History of Suicide: No Previous Psychiatric Hospitalization: No Hopelessness: Yes Protective Factors Assessment Employed: Yes Stable Relationships: Yes Supportive Family: Yes Good Rapport with Provider: Yes Interval History Identifying Information 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 Chief Complaint Depression Review of Systems Sleep Information Total Hours of Sleep: 5.5 Sleep Comments: Sat in day room and read a book for about 45 min. Meal Information Percent Meal Consumed - Breakfast: 100 Percent Meal Consumed - Lunch: 75 Percent Meal Consumed - Dinner: 50 Subjective Subjective Patient was seen & assessed and interval progress reviewed with treatment team nursing and social work Patient reports limited sleep overnight with some nightly awakenings. Patient reports feeling "content". Reports plans to spend the week with family in [place] and reports initially being apprehensive about going but now is more excited. She denies suicidal ideation. We discussed sleep hygiene techniques. No further concerns. Physical Exam Mental Examination Appearance: Well Groomed Eye Contact: Direct Eye Contact Motor Behavior: Unremarkable Speech: Soft Mood: Euthymic and Calm Affect: Appropriate and Congruent Thought Process: Intact Hallucinations: None Insight: Fair Judgement: Fair Vital Signs (Past 24 Hours) Last Vital Signs Temp 37.1 C 08/16/24 06:33 Pulse 90 08/16/24 09:37 Resp 16 08/16/24 06:33 BP 127/92 08/16/24 09:37 Pulse Ox 95 08/13/24 06:35 O2 Del Method Room Air 08/13/24 06:35 Results & Data ([facility]) Current Inpatient Medications Current Inpatient Medications: Current Inpatient Medications Acetaminophen (Acetaminophen 325 Mg Tab) 650 mg PO Q4H PRN PRN Reason: Headache or Minor Fever Stop: 09/10/24 00:04 Last Admin: 08/12/24 16:49 Dose: 650 mg Al Hydrox/Mg Hydrox/Simethicone (Aluminum/Magnesium Susp 30 Ml Udc) 30 ml PO Q4H PRN PRN Reason: GI Upset Stop: 09/10/24 00:04 Bismuth Subsalicylate (Bismuth Subsalicylate 262 Mg Chew) 2 tab PO Q30M PRN PRN Reason: Loose Stool/Diarrhea Stop: 09/10/24 00:04 Fluoxetine HCl (Fluoxetine Hcl 20 Mg Cap) 20 mg PO QAM PETER Stop: 09/13/24 08:59 Last Admin: 08/16/24 09:19 Dose: 20 mg Hydroxyzine HCl (Hydroxyzine Hcl 25 Mg Tab) 50 mg PO HSZ PRN PRN Reason: Insomnia Stop: 09/10/24 00:04 Last Admin: 08/15/24 21:16 Dose: 50 mg Hydroxyzine HCl (Hydroxyzine Hcl 25 Mg Tab) 25 mg PO Q4H PRN PRN Reason: Anxiety Stop: 09/10/24 00:04 Magnesium Hydroxide (Magnesium Hydroxide Susp 30 Ml Udc) 30 ml PO DAILY PRN PRN Reason: Constipation Stop: 09/10/24 00:04 Sodium Chloride (Sodium Chloride 0.65% Na Soln 45 Ml ([place])) 1 - 2 sprays NA PRN PRN PRN Reason: Nasal Dryness/Congestion Stop: 09/10/24 00:04 Sumatriptan Succinate (Sumatriptan Succinate 25 Mg Tab) 25 mg PO DAILY PRN PRN Reason: Migraine Headache Stop: 09/12/24 10:15 Mental Health & Subst Abuse Tx Psychiatrist Name of Psychiatrist: Feli Ceron Psychiatrist's Date Of Appointment With Psychiatric Provider: 08/26/24 Time of Appointment with Psychiatrist: 2:30PM Psychiatric Appointment Comment: 1.5hr intake appt-they will get shorter. $10 copay Therapist Name of Therapist: Westley [facility] Psychology Therapist's Date of Therapist Appointment: 08/19 Time of Therapist Appointment: 11am Therapy Appointment Comment: Telehealth appt Post Discharge Appointments Primary Care Physician Name Of Family Doctor/PCP: LISA Other #1: Name of Aftercare Appointment: [facility] Date of Aftercare Appointment: 08/21/24 Time of Aftercare Appointment: 2pm Aftercare Appointment Comment: Link will be sent to your [employer] email Contact Information Discharge Discharge Address: [address] [place] [address] apt [facility], [place], [place] [address]
--- NOTE | 2024-08-17 09:30 | Discharge Summary ---
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 Her current depressive episode began approximately a month ago but worsened two weeks ago when she lost her keys, which gave her access to her lab, home, and gy m. This incident exacerbated her stress, leading to a period of staying in bed and not answering anyone for the last two weeks. She has not been going to the lab during this time.She recalls her mood spiraling after losing her keys. She was able to talk herself down from this stress but "I thought I managed it at that time" but this disrupted her routine as then she couldn't get into her gym and then started to increasingly isolate. For the last two weeks she's been lying in bed, not attending to her research and not interacting with peers. She had significant anxiety thinking about all the tasks waiting for her at the lab and "I would ruminate on that" which lead to further avoidance. She has noticed a connection between her mood and hormonal fluctuations related to her menstrual cycle, experiencing irritability and mood swings before her period, followed by depression. She had been trying behavioral activation strategies and coping strategies but then symptoms spiraled. She endorses depressive symptoms including tearfulness, anhedonia, decreased motivation, self-guilt, helplessness, hopelessness, decreased energy/fatigue, decreased appetite (eating meal per day), and decreased sleep with disruptive sleep (had been tracking using a CBT-I miguel) but started falling asleep later getting <6 hours. SI has been occurring more frequently with each episode of depression and has intensified to the point of thinking about plans about two weeks ago and has continued to worsen. She also endorses symptoms of anxiety including generalized worries, easily overwhelmed. Possible panic attack a few days ago for the first time with racing heart, trembling and cried. She is not currently prescribed any psychiatric medications. Psychiatric ROS notable for no current nor history of symptoms of ericka, psychosis, nor OCD. History of trauma with nightmares and flashbacks but using affirmations and distraction and tends to be able to then cope with these symptoms effectively. History of restrictive eating for two months as a teenager. History of hair pulling, worsens with anxiety. Physical Exam Mental Examination Appearance: Well Groomed Eye Contact: Direct Eye Contact Motor Behavior: Unremarkable Speech: Soft Mood: Euthymic and Calm Affect: Appropriate and Congruent Thought Process: Intact Hallucinations: None Insight: Fair Judgement: Fair Vital Signs (Past 24 Hours) Last Vital Signs Temp 37.1 C 08/17/24 06:42 Pulse 99 H 08/17/24 06:43 Resp 16 08/17/24 06:42 BP 93/68 L 08/17/24 06:43 Pulse Ox 95 08/13/24 06:35 O2 Del Method Room Air 08/13/24 06:35 Principal Diagnosis Major depressive disorder, recurrent episode, moderate Psychiatric Data See daily stay summary. In short, safety was maintained and the patient was cooperative with care. Medication changes included starting Fluoxetine 20mg daily and they tolerated this well. A family session was held and safety plan was completed prior to discharge. Day of Discharge Assessment Today the patient voices readiness for discharge. They note improvement in mood and deny thoughts to harm self or others. Thoughts remain organized and they are improved from admission. There is no evidence of psychosis. They agree to take mediations as prescribed and keep follow-up appointments. They are stable for discharge to outpatient level of care. Transition of Care Transition Of Care Record: was reviewed with the patient Advance Directives Advance Directives Information Provided: Yes Advance Directives: No Mental Health Advance Directive: No Advance Directives on File: No Living Will: No Power of Aluminum Fabrication Supervisor: No Advance Directives Reason:: Declines as Mental Health Visit. Risk Factors Assessment Male: No : No Do You Have Access To A Gun?: No Health Problems: No Mental Health Diagnoses: Yes Substance Use Disorders: No Previous Attempt: Yes (rehearsal behaviors leading to this admission) Family History of Suicide: No Previous Psychiatric Hospitalization: No Hopelessness: Yes Protective Factors Assessment Employed: Yes Stable Relationships: Yes Supportive Family: Yes Good Rapport with Provider: Yes Discharge Data Lab Results 08/10/24 08/10/24 08/10/24 13:00 13:20 13:27 WBC 6.61 RBC 4.83 Hgb 14.2 Hct 41.0 MCV 84.9 MCH 29.4 MCHC 34.6 RDW Std Deviation 39.1 RDW Coeff of Jose 12.8 Plt Count 213 MPV 10.7 Immature Gran % (Auto) 0.3 Neut % (Auto) 61.8 Lymph % (Auto) 31.0 Hall % (Auto) 5.7 Eos % (Auto) 0.9 Baso % (Auto) 0.3 Neut # (Auto) 4.08 Lymph # (Auto) 2.05 Hall # (Auto) 0.38 Eos # (Auto) 0.06 Baso # (Auto) 0.02 Immature Gran # (Auto) 0.02 Sodium 135 L Potassium 3.6 Chloride 106 Carbon Dioxide 24 Anion Gap 5 BUN 5 L Creatinine 0.61 Est Cr Clr Drug Dosing Not Reportable eGFR 125.59 BUN/Creatinine Ratio 8.2 L Glucose 102 H Calcium 9.9 Total Bilirubin 0.6 AST 13 ALT 14 Alkaline Phosphatase 67 Total Protein 7.6 Albumin 4.5 Globulin 3.1 Albumin/Globulin Ratio 1.5 TSH 1.804 HCG, Qual Negative Urine Color Yellow Urine Appearance Clear Urine pH 6.5 Ur Specific [place] 1.006 Urine Protein Negative Urine Glucose (UA) Negative Urine Ketones Negative Urine Blood Negative Urine Nitrite Negative Urine Bilirubin Negative Urine Urobilinogen Negative Ur Leukocyte Esterase Negative Salicylates < 3.0 L Urine Opiates Screen Neg Ur Methadone, Qual Neg Urine Fentanyl Screen Neg Acetaminophen < 3 L Urine Barbiturates Neg Ur Phencyclidine (PCP) Neg U Amphetamin/Meth Scrn Neg MDMA (Ecstasy) Screen Neg U Benzodiazepines Scrn Neg Ur Cocaine Metabolite Neg U Marijuana (THC) Screen Neg Ethyl Alcohol mg/dL < 10.0 SARS-CoV-2, RNA, NAAT NEGATIVE Hospital Course (1) MDD (major depressive disorder), recurrent episode, moderate: (2) PMDD (premenstrual dysphoric disorder): (3) Insomnia: Plan 08/16/2024: Continue medications and treatment plan 08/15/2024: Continue medications and treatment plan 08/14/2024: -Continue current medications and tx plan 08/13/2024: -Increase fluoxetine to 20mg daily tomorrow 08/12/2024: Continue current medications and tx plan 08/11/2024: The patient was admitted to the [facility] ([facility]) on q15 min checks (behavioral with suicide precautions) for safety. The patient will participate in group, recreational, and milieu therapies and will be offered additional individual and family sessions as clinically appropriate. -start fluoxetine 10mg daily -explore opportunities for increased outpatient support through increased frequency of therapy vs IOP Mental Health & Subst Abuse Tx Psychiatrist Name of Psychiatrist: Feli Ceron Psychiatrist's Date Of Appointment With Psychiatric Provider: 08/26/24 Time of Appointment with Psychiatrist: 2:30PM Psychiatric Appointment Comment: 1.5hr intake appt-they will get shorter. $10 copay Psychiatrist Release of Information: Obtained, Reviewed and Signed Therapist Name of Therapist: Zaynab Weinstein [facility] Therapist's Date of Therapist Appointment: 08/19 Time of Therapist Appointment: 11am Therapy Appointment Comment: Telehealth appt Therapist Release of Information: Obtained, Reviewed and Signed Skein Washer Name of Skein Washer: [facility] Phone Number for Skein Washer: [phone] Case Management Appointment Comment: Completed referral will be scheduled. Post Discharge Appointments Primary Care Physician Name Of Family Doctor/PCP: LISA Other #1: Name of Aftercare Appointment: [facility] Date of Aftercare Appointment: 08/21/24 Time of Aftercare Appointment: 2pm Aftercare Appointment Comment: Link will be sent to your [employer] email Release of Information Aftercare Appointment: Obtained, Reviewed and Signed Contact Information Discharge Discharge Address: [address] [place] [id number] Discharge Plan Discharge Items Patient Disposition: Home - Self-Care Reason For Visit: DEPRESSION WITH SUICIDALITY Discharge Diagnosis: (1) MDD (major depressive disorder), recurrent episode, severe: (2) PMDD (premenstrual dysphoric disorder): (3) Insomnia: Condition on Discharge: Fair Activity: Resume your previous activity Non-emergency contact: Primary Care Provider, Psychiatrist and Therapist Call non-emergency contact if: you have any medication questions and your symptoms worsen Follow-up/Referrals: [facility] [Primary Care Provider] - Diet: Regular Addtl Attending Provider Instructions: -Continue Fluoxetine 20mg daily -Take Hydroxyzine 50mg NEEDED for insomnia (can take half dose 25mg for anxiety) -Engage in cognitive behavioral therapy Pending Studies at Discharge: No Stand-Alone Forms: [facility], Smoking Cessation Medications and DC Order Prescriptions: New fluoxetine 20 mg Capsule 20 mg PO QAM Qty: 30 0RF hydroxyzine HCl 50 mg tablet 50 mg PO HSZ PRN (Reason: anxiety, insomnia) Qty: 30 0RF Discharge Orders: Discharge Order (Routine); Ordered 08/17/24 Ordered By: Quan Gleason Admission Data Admit Date/Time: 08/10/24 21:06 Attending Provider: Dana Gao Admit Provider: Dana Gao Primary Care Provider: [facility] C[place] [address] D/C day mgmt > 30 min Patient Type Established History Detailed Exam Detailed Medical Decision Making Moderate Complexity Diagnoses MDD (major depressive disorder), recurrent episode, moderate F33.1 PMDD (premenstrual dysphoric disorder) F32.81 Insomnia G47.00
== END 2024-08-17 10:44 | disposition home or self-care (01) | DRG 885 ==
LOC: ED 12:57 → 3S 21:06